=== PATIENT | female | born 2000 | race Asian ===

== ENCOUNTER 2020-07-19 02:56 | Emergency (ER) | payer MEDICAID, OTHER ==
[~2020-07-19] VITALS: Ht 160 cm; Wt 67.4 kg
[2020-07-19 02:58] VITALS: BP 124/79
--- NOTE | 2020-07-19 04:08 | NUR ---
REPORT GIVEN TO TINY MORELAND.
--- NOTE | 2020-07-19 04:13 | NUR ---
Report received from TINY Clarke. This RN to assume care.
[2020-07-19] MEDS ORDERED: MAALOX/HYOSCYAMINE/LIDOCAINE 45 ML BTL ONE (04:16)
[2020-07-19] MEDS ORDERED: MAALOX/HYOSCYAMINE/LIDOCAINE 45 ML BTL PO ONE (04:30)
[2020-07-19 04:41] LABS: BASOPHILS % (AUTO) 1 % (0-1); EOSINOPHILS % (AUTO) 3 % (1-7); LYMPHOCYTES % (AUTO) 18 % (22-44); MD NO; MEAN CORPUSCULAR HEMOGLOBIN 29.6 pg (27.0-34.8); MEAN CORPUSCULAR HGB CONC 34.1 g/dL (32.4-35.8); MEAN PLATELET VOLUME 7.9 fL (7.4-10.4); MONOCYTES % (AUTO) 6 % (2-9); NEUTROPHILS % (AUTO) 73 % (42-75); PLATELET COUNT 278 x10^3/uL (130-400); RED BLOOD COUNT 4.46 x10^6/uL (3.82-5.3); RED CELL DISTRIBUTION WIDTH 13.8 % (9.6-15.2)
[2020-07-19 04:50] LABS: ALBUMIN 3.7 g/dL (3.4-5.0); ANION GAP 4 mmol/L (5-15); CALCIUM 8.8 mg/dL (8.5-10.1); CHLORIDE 107 mmol/L (98-107)
[2020-07-19 04:53] LABS: ALANINE AMINOTRANSFERASE 20 U/L (12-78); ALKALINE PHOSPHATASE 41 U/L (45-117); BILIRUBIN,TOTAL 0.3 mg/dL (0.2-1.0); CREATININE 0.72 mg/dL (0.55-1.02); TOTAL PROTEIN 7.3 g/dL (6.4-8.2)
[2020-07-19] MEDS ORDERED: FAMOTIDINE 20 MG TABLET ONE (05:16)
[2020-07-19] MEDS ORDERED: ACETAMINOPHEN 500 MG TABLET ONE (05:16)
[2020-07-19] MEDS ORDERED: ACETAMINOPHEN 500 MG TABLET PO ONE (05:30)
[2020-07-19] MEDS ORDERED: FAMOTIDINE 20 MG TABLET PO ONE (05:30)
--- NOTE | 2020-07-19 06:02 | NUR ---
Discharge instructions given. All questions and concerns addressed. Patient ambulatory with a steady gait. Belongings with patient.
== END 2020-07-19 06:06 | disposition home or self-care (01) ==
LOC: ED 05:27
DX: K29.00 Acute gastritis without bleeding (principal); K59.00 Constipation, unspecified; R10.13 Epigastric pain
CPT/HCPCS: 36415; 80053; 83690; 85025; 93005; 99284